=== PATIENT | male | born 1970 | race Caucasian/White ===

== ENCOUNTER 2021-02-08 18:38 | Emergency (ER) | payer OTHER ==
[~2021-02-08 18:38] MED LIST: BACTROBAN OINT22 GM EXT; CYCLOBENZAPRINE5 MG PO; IBUPROFEN600 MG PO; NAPROXEN375 M1 PO
[2021-02-08] MEDS ORDERED: ZYRTEC10 MG PO (20:17)
[2021-02-08] MEDS ORDERED: MEDROL DOSEPAK 24 MG PO (20:17)
== END 2021-02-08 20:23 | disposition home or self-care (01) ==
LOC: ER1 18:38
DX: J06.9 Acute upper respiratory infection, unspecified (principal); F17.220 Nicotine dependence, chewing tobacco, uncomplicated; F17.210 Nicotine dependence, cigarettes, uncomplicated; Z20.822 Contact with and (suspected) exposure to COVID-19
CPT/HCPCS: 0240U; 87081; 87880; 99283

== ENCOUNTER 2022-02-03 12:52 | Emergency (ER) | payer OTHER ==
[~2022-02-03 12:52] MED LIST changes: +MEDROL DOSEPAK 24 MG PO; +ZYRTEC10 MG PO
[2022-02-03 14:25] LABS: HEMOGLOBIN 15.1 gm/dl (14.0-17.5); RED BLOOD COUNT 4.48 M/UL (4.20-5.50); WHITE BLOOD COUNT 9.6 K/UL (4.5-11.0)
[2022-02-03 14:44] LABS: BUN/CREATININE RATIO 29 (0-10)
[2022-02-03] MEDS ORDERED: IBUPROFEN800 MG PO (15:28)
[2022-02-03] MEDS ORDERED: CEFUROXIME500 MG PO (15:28)
== END 2022-02-03 15:45 | disposition home or self-care (01) ==
LOC: ER1 12:52
PROVIDERS: Preventive Medicine Occupational Medicine
DX: H66.91 Otitis media, unspecified, right ear (principal); R51.9 Headache, unspecified; F17.210 Nicotine dependence, cigarettes, uncomplicated
CPT/HCPCS: 80048; 85025; 85652; 86140; 96374; 96375; 99284; C9113; J0696; J1885

== ENCOUNTER → 2022-02-16 | Outpatient (CLI) | payer OTHER ==
[~2022-02-16] MED LIST changes: +CEFUROXIME500 MG PO; +IBUPROFEN800 MG PO
== END ==
LOC: EXRD 13:58
DX: M47.22 Other spondylosis with radiculopathy, cervical region (principal); M50.11 Cervical disc disorder with radiculopathy, high cervical region; M47.27 Other spondylosis with radiculopathy, lumbosacral region
CPT/HCPCS: 72040; 72100